=== PATIENT | female | born 1995 | race Asian ===

== ENCOUNTER 2017-12-24 10:57 | Emergency (ER) | payer OTHER ==
[2017-12-24] MEDS ORDERED: NS 0.9% 1000 ML* 1,000 ML IV ONE (13:28)
--- NOTE | 2017-12-24 13:35 | ED ---
Syncope/Near Syncope - HPI Summary HPI Summary: Pt is a 22 y/o female who presents to the ED s/p near-syncopal episode at 10: 00. She states she was walking her bike downhill, when she suddenly felt dizzy, faint, and nauseated. She could no longer walk straight and fell to the floor, and states she couldnt hear anything because her ears were ringing. Pt denies any LOC, but states she wouldve had LOC if she had stayed standing. She denies any CP, SOB, fever, or abdominal pain. Pt also c/o sore throat. She now feels a lot better, but still woozy. Pt ate this morning, and denies any alcohol, smoking, or drug use. - History Of Current Complaint Chief Complaint: EDSyncope Time Seen by Provider: 12/24/17 13:16 Hx Obtained From: Patient Onset/Duration: Sudden Onset, Lasting Minutes, Resolved Timing: Minutes Activity At Onset: Exertion - Walking downhill Aggravating Factor(s): Nothing Alleviating Factor(s): Spontaneous Resolution Associated Signs And Symptoms: Dizzy, Lightheadedness - Allergies/Home Medications Allergies/Adverse Reactions: Allergies Allergy/AdvReac Type Severity Reaction Status Date / Time No Known Allergies Allergy Verified 04/03/15 18:48 PMH/Surg Hx/FS Hx/Imm Hx Endocrine/Hematology History: Denies: Hx Diabetes Cardiovascular History: Denies: Hx Hypertension Infectious Disease History: No Infectious Disease History: Denies: Traveled Outside the [place] in Last 30 Days - Family History Known Family History: Negative: Diabetes - Social History Alcohol Use: Occasionally Hx Substance Use: No Substance Use Type: Reports: None Hx Tobacco Use: No Smoking Status (MU): Never Smoked Tobacco Review of Systems Negative: Fever Positive: Other - Tinnitus Negative: Chest Pain Negative: Shortness Of Breath Positive: Nausea. Negative: Abdominal Pain Neurological: Other - Dizziness Positive: Syncope - Near All Other Systems Reviewed And Are Negative: Yes Physical Exam - Summary Physical Exam Summary: Appearance: Well appearing, no pain distress Skin: warm, dry, reflects adequate perfusion Head/face: normal Eyes: EOMI, TATI ENT: normal Neck: supple, non-tender Respiratory: CTA, breath sounds present Cardiovascular: RRR, pulses symmetrical Abdomen: non-tender, soft Bowel: present Musculoskeletal: normal, strength/ROM intact Neuro: normal, sensory motor intact, A&Ox3 Triage Information Reviewed: Yes Vital Signs On Initial Exam: Initial Vitals Temp Pulse Resp BP Pulse Ox 98.5 F 56 16 111/74 0 12/24/17 11:01 12/24/17 11:01 12/24/17 11:01 12/24/17 11:01 12/24/17 11:01 Vital Signs Reviewed: Yes Diagnostics - Vital Signs Vital Signs Temp Pulse Resp BP Pulse Ox 12/24/17 12:30 98.6 F 87 16 97/55 99 12/24/17 11:01 98.5 F 56 16 111/74 0 - Laboratory Result Diagrams: 12/24/17 13:38 12/24/17 13:38 Lab Statement: Any lab studies that have been ordered have been reviewed, and results considered in the medical decision making process. - Radiology CXR Xray Interpretation: No Acute Changes - Normal chest. ED physician reviewed radiology report. Radiology Interpretation Completed By: Radiologist - EKG 11:14 Cardiac Rate: NL - 74 bpm EKG Rhythm: Sinus Rhythm EKG Interpretation: No acute changes Course/Dx Course Of Treatment: Pt is a 22 y/o female who presents to the ED s/p near- syncopal episode at 10:00. She states she was walking her bike downhill, when she suddenly felt dizzy, faint, and nauseated. She could no longer walk straight and fell to the floor, and states she couldnt hear anything because her ears were ringing. Pt denies any LOC, but states she wouldve had LOC if she had stayed standing. She denies any CP, SOB, fever, or abdominal pain. A physical exam is normal. A CXR is normal. An EKG revealed normal rate of 74 bpm. Final dx is dizziness. Pt will be discharged, and is agreeable with this plan. - Diagnoses Differential Diagnosis/HQI/PQRI: Positive: Hypovolemia, Vasovagal Episode Provider Diagnoses: Dizziness Discharge - Sign-Out/Discharge Documenting (check all that apply): Patient Departure - Discharge - Discharge Plan Condition: Stable Disposition: HOME Patient Education Materials: Near Syncope (ED), Dizziness (ED) Referrals: [facility] - Dontae PICKERING [Primary Care Provider] - 3 Days Additional Instructions: RETURN TO THE ED WITH ANY NEW OR WORSENING SYMPTOMS. - Billing Disposition and Condition Condition: STABLE Disposition: Home - Attestation Statements Document Initiated by Scribe: Yes Documenting Scribe: Milagro Case Provider For Whom Scribe is Documenting (Include Credential): Alphonso Ocasio MD Scribe Attestation: Milagro Cali, scribed for Alphonso Ocasio MD on 12/24/17 at 1531. Scribe Documentation Reviewed: Yes Provider Attestation: The documentation as recorded by the Milagro haney accurately reflects the service I personally performed and the decisions made by Alphonso alfaro MD
[2017-12-24 13:50] LABS: ABS Basophils 0.1 10^3/ul (0-0.2); ABS Eosinophils 0.2 10^3/ul (0-0.6); ABS Lymphocytes 1.6 10^3/ul (1.0-4.8); ABS Monocytes 0.5 10^3/ul (0-0.8); ABS Neutrophils 5.3 10^3/ul (1.5-7.7); ABS Nucleated RBC 0 10^3/ul; Eosinophil % 2.3 % (0-6); Hematocrit 38 % (35-47); Lymphocyte % 21.4 % (25-47); Mean Corpuscular HGB Conc 34 g/dl (31-36); Mean Corpuscular Hemoglobin 30 pg (27-31); Mean Corpuscular Volume 88 fL (80-97); Mean Platelet Volume 8.9 um3 (7.4-10.4); Nucleated Red Blood Cells % 0.1; Platelet Count 259 10^3/ul (150-450); Red Blood Count 4.34 10^6/ul (4.00-5.40); Red Cell Distribution Width 13 % (10.5-15); White Blood Count 7.7 10^3/ul (3.5-10.8)
--- NOTE | 2017-12-24 14:03 | RAD ---
INDICATION: Syncope COMPARISON: None TECHNIQUE: An AP portable view obtained at 1335 hours is submitted. FINDINGS: Bones/Soft Tissues: There are no acute bony findings. Cardiomediastinal: The cardiomediastinal silhouette is normal. Lungs: There are no infiltrates. Pleura: There are no pleural effusions. Other: None IMPRESSION: NORMAL CHEST.
[2017-12-24 15:04] LABS: Urine Appearance Turbid; Urine Blood Negative (Negative); Urine Color Yellow; Urine Ketones Trace (Negative); Urine Protein Negative (Negative); Urine Red Blood Cell Absent (Absent); Urine Specific Gravity 1.015 (1.010-1.030); Urine Urobilinogen Negative (Negative); Urine White Blood Cell Absent (Absent)
[2017-12-24 15:44] VITALS: BP 112/83
== END 2017-12-24 15:43 | disposition home or self-care (01) ==
LOC: ED 10:57
DX: R42 Dizziness and giddiness (principal); H93.13 Tinnitus, bilateral
CPT/HCPCS: 36415; 71045; 80053; 81003; 81015; 84484; 84702; 85025; 87086; 93005; 96360; 99282